=== PATIENT | male | born 1970 | race Caucasian/White ===

== ENCOUNTER 2017-10-25 09:42 | Emergency (ER) | payer MEDICAID, OTHER, SELFPAY ==
[2017-10-25 09:46] VITALS: BMI 29.7
[2017-10-25 09:49] VITALS: TEMP 98.2; O2SAT 98
--- NOTE | 2017-10-25 10:29 | C.PDOC ---
History Of Present Illness Patient presents to ED with c/o left ear pain for 1 month. Patient states he was seen at [facility] 3 weeks ago and was given antibiotics which he finished but pain worsened with discharge from left ear and pain with touch. Patient reports being seeing at [facility] and given drops with no improvement which prompted visit to ED today. Patient denies fever, trauma, bleeding or headache. Time Seen by Provider: 10/25/17 09:53 Chief Complaint (Nursing): ENT Problem History Per: Patient History/Exam Limitations: None Onset/Duration Of Symptoms: Days Current Symptoms Are (Timing): Still Present Quality (Ear): Pain W/Touch, Discharge Past Medical History Reviewed: Historical Data, Nursing Documentation, Vital Signs Vital Signs: Last Vital Signs Temp 98.2 F 10/25/17 09:48 Pulse 75 10/25/17 10:42 Resp 20 10/25/17 10:42 BP 130/70 10/25/17 10:42 Pulse Ox 98 10/25/17 11:13 - Medical History PMH: No Chronic Diseases, Diabetes Surgical History: No Surg Hx Family History: States: No Known Family Hx - Social History Hx Tobacco Use: No Hx Alcohol Use: No Hx Substance Use: No - Immunization History Hx Tetanus Toxoid Vaccination: No Hx Influenza Vaccination: No Hx Pneumococcal Vaccination: No Review Of Systems Constitutional: Negative for: Fever, Chills ENT: Positive for: Ear Pain, Ear Discharge. Negative for: Throat Pain Respiratory: Negative for: Cough Gastrointestinal: Negative for: Nausea, Vomiting Neurological: Negative for: Headache Physical Exam - Physical Exam Appears: Non-toxic, No Acute Distress Skin: Warm, Dry, No Rash Head: Atraumatic, Normacephalic Eye(s): bilateral: Normal Inspection Ear(s): Left: TM Obscured By Wax, Other (Tenderness with pushing of tragus and pulling of pinna. Inflammation to inner ear with purulent discharge on external canal. No mastoid tenderness), Right: Normal Oral Mucosa: Moist Throat: Normal, No Erythema, No Exudate Neck: Normal ROM, Supple Cardiovascular: Rhythm Regular Respiratory: Normal Breath Sounds, No Rales, No Rhonchi, No Wheezing Extremity: Normal ROM, No Swelling Neurological/Psych: Oriented x3, Normal Speech, Normal Cognition Gait: Steady ED Course And Treatment O2 Sat by Pulse Oximetry: 98 (RA) Pulse Ox Interpretation: Normal Medical Decision Making Medical Decision Making: Prior records reviewed: No chart are found in regards to visits at [facility]. MDM: Patient is diabetic with uncontrolled sugar levels, instructed his sugar being high causes delay of healing for infections. The ear has no evidence of malignant otitis externa at this time. Progress: Patient discharge and instructed to f.u with ENT in 1-2 days without fail Disposition - Disposition Referrals: Sudhir Mott MD [Staff Provider] - Disposition: HOME/ ROUTINE Disposition Time: 10:32 Condition: FAIR Additional Instructions: MUST FOLLOW UP WITH THE ENT WITHIN 1-2 DAYS WITHOUT FAIL. RETURN IF WORSENED. Prescriptions: Amoxicillin/Clavulanate [Augmentin 875 MG-125 MG] 1 tab PO BID #14 tab Ciprofloxacin/Hydrocortisone [Cipro Hc Otic Suspension] 4 drop BID #10 ml Instructions: Outer Ear Infection (DC) Forms: [employer] (Faroese) Print Language: INDONESIAN - Clinical Impression Clinical Impression: Otitis externa - PA / DISTRICT COURT ADMINISTRATOR / Resident Statement MD/DO has reviewed & agrees with the documentation as recorded. - Scribe Statement The provider has reviewed the documentation as recorded by the Scribtravis Enriquez All medical record entries made by the Saida were at my direction and personally dictated by me. I have reviewed the chart and agree that the record accurately reflects my personal performance of the history, physical exam, medical decision making, and the department course for this patient. I have also personally directed, reviewed, and agree with the discharge instructions and disposition.
[2017-10-25 10:43] VITALS: BP 130/70; PULSE 75; RESP 20
== END 2017-10-25 10:43 | disposition home or self-care (01) ==
LOC: C.ER 09:42
DX: H60.92 Unspecified otitis externa, left ear (principal); E11.9 Type 2 diabetes mellitus without complications